=== PATIENT | male | born 1980 ===

== ENCOUNTER 2017-11-11 23:12 | Emergency (ER) | payer MEDICAID ==
[2017-11-11 23:12] VITALS: BMI 29.2
[2017-11-11 23:23] VITALS: TEMP 97.5; O2SAT 100
[2017-11-11] MEDS ORDERED: DiphenhydrAMINE 50 mg/ml Inj IVP STA (23:52)
--- NOTE | 2017-11-12 00:24 | C.PDOC ---
History Of Present Illness 37 year old male presents to the ER with a 2 day Hx of headache that is current today and current yesterday, associated with nausea. denies fever, vomiting, vision change, or family Hx of brain bleeds. Patient states it's a gradual onset headache that feels like a vicegrip around his head but does not feels like the worse headache of his life. Patient reports he is driving but will take an uber home. Time Seen by Provider: 11/11/17 23:30 Chief Complaint (Nursing): Headache History Per: Patient History/Exam Limitations: no limitations Onset/Duration Of Symptoms: Days, Gradual Current Symptoms Are (Timing): Still Present Quality: Other (Vicegrip) Preceeding Symptoms: None Associated Symptoms: Nausea. denies: Photophobia, Blurred Vision, Vomiting, Extremity Weakness Recent travel outside of the [place]: No Past Medical History Reviewed: Historical Data, Nursing Documentation, Vital Signs Vital Signs: Last Vital Signs Temp 97.5 F L 11/11/17 23:18 Pulse 82 11/12/17 01:30 Resp 16 11/12/17 01:30 BP 127/84 11/12/17 01:30 Pulse Ox 100 11/12/17 01:30 - Medical History PMH: Colonic Polyps Surgical History: Endoscopy (colonoscopy) Family History: States: Unknown Family Hx - Social History Hx Tobacco Use: No Hx Alcohol Use: Yes Hx Substance Use: No - Immunization History Hx Tetanus Toxoid Vaccination: No Hx Influenza Vaccination: No Hx Pneumococcal Vaccination: No Review Of Systems Constitutional: Negative for: Fever, Chills Eyes: Negative for: Vision Change Gastrointestinal: Positive for: Nausea. Negative for: Vomiting Neurological: Positive for: Headache Physical Exam - Physical Exam Appears: Non-toxic, No Acute Distress Skin: Normal Color, Warm, Dry Head: Atraumatic, Normacephalic Eye(s): bilateral: Normal Inspection, PERRL, EOMI Oral Mucosa: Moist Neck: Normal, Supple Chest: Symmetrical, No Tenderness Cardiovascular: Rhythm Regular Respiratory: Normal Breath Sounds, No Rales, No Rhonchi, No Wheezing Gastrointestinal/Abdominal: Soft, No Tenderness Neurological/Psych: Oriented x3, Normal Speech ED Course And Treatment O2 Sat by Pulse Oximetry: 100 (room air) Pulse Ox Interpretation: Normal Medical Decision Making Medical Decision Making: Plan: * CT head * Benadryl * Reglan * * patient states improvement. Will discharge home to follow up with pmd in2 days. Disposition Counseled Patient/Family Regarding: Studies Performed, Diagnosis, Need For Followup, Rx Given - Disposition Referrals: Anupam Pepe MD [Staff Provider] - Disposition: HOME/ ROUTINE Disposition Time: : Condition: IMPROVED Additional Instructions: follow up with neurology in 2 days call to make an appointment medication as needed for pain return to hospital if symptoms worsens or progress Prescriptions: Naproxen [Naprosyn] 500 mg PO BID PRN #16 tab PRN Reason: Pain, Moderate (4-7) Instructions: Tension Headache (ED) Forms: [facility] (Irish), General Discharge Instructions - Clinical Impression Clinical Impression: Headache - Scribe Statement The provider has reviewed the documentation as recorded by the Scribe Dain Vásquez All medical record entries made by the Scribe were at my direction and personally dictated by me. I have reviewed the chart and agree that the record accurately reflects my personal performance of the history, physical exam, medical decision making, and the department course for this patient. I have also personally directed, reviewed, and agree with the discharge instructions and disposition. Physician Patient Turnover Patient Signed Over To: Mejia Gatica DO Handoff Comments: pending CT head
[2017-11-12] MEDS ORDERED: DiphenhydrAMINE 50 mg/ml Inj ONE (00:32)
--- NOTE | 2017-11-12 00:57 | CT ---
EXAM: CT Head Without Intravenous Contrast CLINICAL HISTORY: 37 years old, male; Pain; Headache and other: Dizziness TECHNIQUE: Axial computed tomography images of the head/brain without intravenous contrast. All CT scans at this facility use one or more dose reduction techniques, viz.: automated exposure control; ma/kV adjustment per patient size (including targeted exams where dose is matched to indication; i.e. head); or iterative reconstruction technique. 367 images are submitted. Coronal and sagittal reformatted images were created and reviewed. COMPARISON: No relevant prior studies available. FINDINGS: Artifacts: Limited due to motion and misregistration artifacts. Brain: Unremarkable. No hemorrhage. No significant white matter disease. No edema. Ventricles: Unremarkable. No ventriculomegaly. Bones/joints: Unremarkable. No acute fracture. Soft tissues: Unremarkable. Sinuses: Unremarkable. No acute sinusitis. Mastoid air cells: Unremarkable. No mastoid effusion. IMPRESSION: No evidence of an acute intracranial hemorrhage, midline shift or mass effect is identified.
[2017-11-12 01:37] VITALS: BP 127/84; PULSE 82; RESP 16
== END 2017-11-12 02:00 | disposition home or self-care (01) ==
LOC: C.ER 23:12
DX: R51 Headache (principal)
CPT/HCPCS: 70450; 96374; 96375; 99284; J1200; J2765

== ENCOUNTER 2018-01-27 09:10 | Emergency (ER) | payer MEDICAID ==
[2018-01-27 09:10] VITALS: BMI 29.2
[2018-01-27 09:25] VITALS: RESP 20
[2018-01-27] MEDS ORDERED: Sodium Chloride 0.9% 1,000 ML IV ONE (10:30)
[2018-01-27 11:03] LABS: BASO # 0.1 K/uL (0.0-0.2); BASO % 1.1 % (0.0-2.0); EOS # 0.1 K/uL (0.0-0.7); EOS % 1.3 % (0.0-4.0); HEMOGLOBIN 16.2 g/dL (12.0-18.0); LYMPH % 16.7 % (20.0-40.0); MEAN CELL VOLUME 83.5 fL (80.0-94.0); MEAN CORPUSCULAR HEMOGLOBIN 29.2 pg (27.0-31.0); MEAN CORPUSCULAR HGB CONC 34.9 g/dL (33.0-37.0); MEAN PLATELET VOLUME 7.9 fL (7.2-11.7); MONO # 0.2 K/uL (0.0-0.8); MONO % 3.8 % (0.0-10.0); NEUT # 4.5 K/uL (1.8-7.0); NEUT % 77.1 % (50.0-75.0); RBC 5.55 Mil/uL (4.40-5.90); WHITE BLOOD COUNT 5.8 K/uL (4.8-10.8)
[2018-01-27 11:20] LABS: ALB/GLOB RATIO 1.3 (1.0-2.1); ALBUMIN 4.2 g/dL (3.5-5.0); ALT/SGPT 24 U/L (21-72); AST/SGOT 26 U/L (17-59); BLOOD UREA NITROGEN 17 mg/dL (9-20); CALCIUM 9.3 mg/dl (8.6-10.4); GFR AFRICAN-AMERICAN > 60; GFR NON-AFRICAN AMERICAN > 60; LIPASE 113 U/L (23-300)
[2018-01-27 11:56] LABS: SQUAMOUS EPITHIAL < 1 /hpf (0-5); URINE BILIRUBIN NEGATIVE (NEGATIVE); URINE BLOOD NEGATIVE (NEGATIVE); URINE CLARITY Clear (Clear); URINE COLOR Yellow (YELLOW); URINE GLUCOSE (UA) NORMAL (Normal); URINE LEUKOCYTE ESTERASE NEG Leu/uL (Negative); URINE NITRATE NEGATIVE (NEGATIVE); URINE PROTEIN NEGATIVE (NEGATIVE); URINE UROBILINOGEN NORMAL mg/dL (0.2-1.0)
--- NOTE | 2018-01-27 13:18 | C.PDOC ---
History Of Present Illness 37-year-old male, presents to the emergency department with complaints of dizziness that is described as room spinning, associated with nausea and two episodes of non-bloody/non-bilious vomiting. Patient has a prior Hx of vertigo from several years ago, and does not remember his medications. Patient denies numbness/weakness, speech changes, facial droop, sensory changes visual changes or any other associated symptoms. No other complaints at this time. Time Seen by Provider: 01/27/18 09:49 Chief Complaint (Nursing): GI Problem History Per: Patient History/Exam Limitations: no limitations Past Medical History Reviewed: Historical Data, Nursing Documentation, Vital Signs Vital Signs: Last Vital Signs Temp 98.3 F 01/27/18 13:47 Pulse 93 H 01/27/18 13:47 Resp 20 01/27/18 13:47 BP 125/83 01/27/18 13:47 Pulse Ox 99 01/27/18 13:47 - Medical History PMH: Colonic Polyps Surgical History: Endoscopy (colonoscopy) Family History: States: No Known Family Hx - Social History Hx Tobacco Use: No Hx Alcohol Use: Yes Hx Substance Use: No - Immunization History Hx Tetanus Toxoid Vaccination: No Hx Influenza Vaccination: No Hx Pneumococcal Vaccination: No Review Of Systems Constitutional: Negative for: Fever, Chills Cardiovascular: Negative for: Chest Pain, Palpitations Respiratory: Negative for: Shortness of Breath Gastrointestinal: Positive for: Nausea, Vomiting Skin: Negative for: Rash Neurological: Positive for: Dizziness. Negative for: Weakness, Numbness, Headache Physical Exam - Physical Exam Appears: Well, Non-toxic, No Acute Distress Skin: Normal Color, Warm, Dry, No Rash Head: Normacephalic Eye(s): bilateral: Normal Inspection, PERRL, EOMI, Other (no nystagmus) Nose: Normal Oral Mucosa: Moist Lips: Normal Appearing Neck: Normal ROM, Supple Chest: Symmetrical Cardiovascular: Rhythm Regular, No Murmur Respiratory: Normal Breath Sounds, No Accessory Muscle Use Extremity: Normal ROM, No Deformity, No Swelling Neurological/Psych: Oriented x3, Normal Speech, Normal Cognition, Normal Cranial Nerves, Normal Motor, Normal Sensation, Other (No focal deficit) ED Course And Treatment - Laboratory Results Result Diagrams: 01/27/18 10:58 01/27/18 10:58 O2 Sat by Pulse Oximetry: 100 (RA) Pulse Ox Interpretation: Normal Progress Note: Bloodwork amd UA ordered and reviewed. Patient treated with Meclizine, IVFs and Zofran. On re-evaluation, Patient is now asymptomatic, denies any neurologic complaints, is ambulating well, and is tolerating PO. Patient will be discharged home on Antivert. Patient was instructed to follow up with physician/clinic, and to return to the ER in 1-2 days if no follow up can be arranged. Disposition Counseled Patient/Family Regarding: Studies Performed, Diagnosis, Need For Followup, Rx Given - Disposition Referrals: Royer Harman MD [Staff Provider] - Ruy Leal [Medical Doctor] - Disposition: HOME/ ROUTINE Disposition Time: 13:15 Condition: STABLE Additional Instructions: FOLLOW UP WITH NEUROLOGY IF SYMPTOMS PERSIST USE MEDICATIONS DOIRECTED RETURN TO ER IF SYMPTOMS WORSEN Prescriptions: Meclizine [Meclizine*] 25 mg PO Q6 #20 tab Instructions: Vertigo (a Type of Dizziness) (DC) Forms: [employer] (Wolof) Print Language: KOREAN - POA Present On Arrival: None - Clinical Impression Clinical Impression: Peripheral vertigo - Scribe Statement The provider has reviewed the documentation as recorded by the Scribe (Cain Flower) All medical record entries made by the Scribe were at my direction and personally dictated by me. I have reviewed the chart and agree that the record accurately reflects my personal performance of the history, physical exam, medical decision making, and the department course for this patient. I have also personally directed, reviewed, and agree with the discharge instructions and disposition.
[2018-01-27 13:48] VITALS: BP 125/83; PULSE 93; TEMP 98.3
[2018-01-27 17:51] VITALS: O2SAT 100
== END 2018-01-27 13:47 | disposition home or self-care (01) ==
LOC: C.ER 09:10
DX: H81.399 Other peripheral vertigo, unspecified ear (principal)
CPT/HCPCS: 80053; 81001; 83690; 85025; 96374; 99285; J2405; J7040

== ENCOUNTER 2018-12-20 22:08 | Emergency (ER) | payer MEDICAID ==
[2018-12-20 22:08] VITALS: BMI 29.2
[2018-12-20 22:23] VITALS: RESP 18
[2018-12-20] MEDS ORDERED: Sodium Chloride 0.9% 1,000 ML IV ONE (22:26)
[2018-12-20 22:41] LABS: BASO # 0.1 K/uL (0.0-0.2); BASO % 1.3 % (0.0-2.0); EOS # 0.2 K/uL (0.0-0.7); EOS % 4.3 % (0.0-4.0); HEMOGLOBIN 16.5 g/dL (12.0-18.0); LYMPH % 35.8 % (20.0-40.0); MEAN CELL VOLUME 83.8 fL (80.0-94.0); MEAN CORPUSCULAR HEMOGLOBIN 27.5 pg (27.0-31.0); MEAN CORPUSCULAR HGB CONC 32.9 g/dL (33.0-37.0); MEAN PLATELET VOLUME 7.6 fL (7.2-11.7); MONO # 0.3 K/uL (0.0-0.8); MONO % 5.8 % (0.0-10.0); NEUT # 2.9 K/uL (1.8-7.0); NEUT % 52.8 % (50.0-75.0); NRBC % 0.3 % (0.0-2.0); RBC 6.01 Mil/uL (4.40-5.90); RED CELL DISTRIBUTION WIDTH 12.9 % (11.5-14.5); WHITE BLOOD COUNT 5.5 K/uL (4.8-10.8)
[2018-12-20] MEDS ORDERED: Sodium Chloride 0.9% 1,000 ML ONE (22:42)
[2018-12-20 22:57] LABS: ALB/GLOB RATIO 1.4 (1.0-2.1); ALBUMIN 4.6 g/dL (3.5-5.0); ALT/SGPT 22 U/L (21-72); AST/SGOT 27 U/L (17-59); BLOOD UREA NITROGEN 19 mg/dL (9-20); CALCIUM 9.1 mg/dl (8.6-10.4); GFR NON-AFRICAN AMERICAN > 60
--- NOTE | 2018-12-20 23:08 | C.PDOC ---
History Of Present Illness 38 year old male presents to the ED complaining of gradual-onset persistent headache for the last couple days. Headache is described as a band wrapping around his occiput into the temporal areas. Pain is constant, dull, pressure-like pain. Patient reports he has a history of headaches and was seen 1 year ago, at which time he had a negative CT Head. Patient then saw his PMD in the office and was prescribed Sumatriptan, which he takes occasionally. Patient reports current headache is not similar to prior migraines. It has a gradual onset and has been persistent. He denies aura. Patient notes that if he moves his head suddenly he feels dizzy. Denies any associated visual changes, photophobia, numbness, weakness, neuro deficits, neck stiffness, or fever. Time Seen by Provider: 12/20/18 22:19 Chief Complaint (Nursing): Headache History Per: Patient History/Exam Limitations: no limitations Onset/Duration Of Symptoms: Days Current Symptoms Are (Timing): Still Present Quality: Pressure, Squeezing Preceeding Symptoms: None Recent travel outside of the [place]: No Past Medical History Reviewed: Historical Data, Nursing Documentation, Vital Signs Vital Signs: Last Vital Signs Temp 97.9 F 12/20/18 22:17 Pulse 90 12/20/18 22:17 Resp 18 12/20/18 22:17 BP 137/85 12/20/18 22:17 Pulse Ox 97 12/20/18 22:17 - Medical History PMH: Colonic Polyps, Migraine Surgical History: Endoscopy (colonoscopy) Family History: States: Unknown Family Hx - Social History Hx Tobacco Use: No Hx Alcohol Use: No Hx Substance Use: No - Immunization History Hx Tetanus Toxoid Vaccination: No Hx Influenza Vaccination: No Hx Pneumococcal Vaccination: No Review Of Systems Constitutional: Negative for: Fever, Chills Eyes: Negative for: Vision Change Cardiovascular: Negative for: Chest Pain, Palpitations Respiratory: Negative for: Shortness of Breath Gastrointestinal: Negative for: Nausea, Vomiting Musculoskeletal: Negative for: Neck Pain Neurological: Positive for: Headache. Negative for: Weakness, Numbness, Change in Speech, Confusion, Altered Mental Status Physical Exam - Physical Exam Appears: Non-toxic, No Acute Distress Skin: Normal Color, Warm Head: Atraumatic, Normacephalic Eye(s): bilateral: Normal Inspection (no nystagmus), PERRL, EOMI Nose: Normal Oral Mucosa: Moist Neck: Normal ROM, Supple, Other (No meningeal signs) Chest: Symmetrical Cardiovascular: Rhythm Regular, No Murmur Respiratory: Normal Breath Sounds, No Accessory Muscle Use Gastrointestinal/Abdominal: Soft, No Tenderness, No Distention Back: Normal Inspection Extremity: Bilateral: Atraumatic, Normal Color And Temperature, Normal ROM Neurological/Psych: Oriented x3, Normal Speech, Normal Cognition, Normal Cranial Nerves (2-12 intact), No Cerebellar Signs, Normal Motor, Normal Sensation, Other (No focal deficits) Gait: Steady ED Course And Treatment - Laboratory Results Result Diagrams: 12/20/18 22:38 12/20/18 22:38 Lab Results: Total Bilirubin 0.6 mg/dL (0.2-1.3) 12/20/18 22:38 AST 27 U/L (17-59) 12/20/18 22:38 ALT 22 U/L (21-72) 12/20/18 22:38 Alkaline Phosphatase 59 U/L (38-126) 12/20/18 22:38 Total Protein 8.0 g/dL (6.3-8.3) 12/20/18 22:38 Albumin 4.6 g/dL (3.5-5.0) 12/20/18 22:38 Globulin 3.4 gm/dL (2.2-3.9) 12/20/18 22:38 Albumin/Globulin Ratio 1.4 (1.0-2.1) 12/20/18 22:38 Lab Interpretation: Normal O2 Sat by Pulse Oximetry: 97 (RA) Pulse Ox Interpretation: Normal Progress Note: Patient treated with IV Toradol with relief of symptoms. Reevaluation Time: 23:26 Reassessment Condition: Improved Medical Decision Making Medical Decision Making: Impression: Tension headache Plan: --Blood work --1L IV fluids --30 mg IV Toradol --Reassess Disposition Counseled Patient/Family Regarding: Studies Performed, Diagnosis, Need For Followup, Rx Given - Disposition Disposition: HOME/ ROUTINE Disposition Time: 23:26 Condition: IMPROVED Additional Instructions: Follow up with your primary care provider. Prescriptions: Meloxicam [Mobic] 15 mg PO DAILY #20 tab Instructions: Tension Headache (DC) Forms: [employer] (Korean) - Clinical Impression Clinical Impression: Tension type headache - Scribe Statement The provider has reviewed the documentation as recorded by the Akil Ibarra Provider Attestation: All medical record entries made by the Akil were at my direction and personally dictated by me. I have reviewed the chart and agree that the record accurately reflects my personal performance of the history, physical exam, medical decision making, and the department course for this patient. I have also personally directed, reviewed, and agree with the discharge instructions and disposition.
[2018-12-20 23:38] VITALS: BP 129/83; PULSE 74; TEMP 98; O2SAT 100
== END 2018-12-20 23:43 | disposition home or self-care (01) ==
LOC: C.ER 22:08
DX: G44.209 Tension-type headache, unspecified, not intractable (principal)
CPT/HCPCS: 80053; 85025; 96374; 99284; J1885

== ENCOUNTER 2019-01-15 18:40 | Emergency (ER) | payer MEDICAID ==
[2019-01-15 18:40] VITALS: BMI 29.2
[2019-01-15 18:55] VITALS: TEMP 98.4
[2019-01-15] MEDS ORDERED: Sodium Chloride 0.9% 1,000 ML IV STA (19:48)
[2019-01-15 20:02] LABS: BASO # 0.1 K/uL (0.0-0.2); EOS # 0.2 K/uL (0.0-0.7); EOS % 3.8 % (0.0-4.0); HEMOGLOBIN 16.6 g/dL (12.0-18.0); LYMPH # 1.4 K/uL (1.0-4.3); MEAN CELL VOLUME 83.9 fL (80.0-94.0); MEAN CORPUSCULAR HEMOGLOBIN 28.2 pg (27.0-31.0); MEAN CORPUSCULAR HGB CONC 33.6 g/dL (33.0-37.0); MEAN PLATELET VOLUME 7.6 fL (7.2-11.7); MONO # 0.3 K/uL (0.0-0.8); MONO % 5.9 % (0.0-10.0); NEUT # 3.5 K/uL (1.8-7.0); NEUT % 63.3 % (50.0-75.0); NRBC % 0.2 % (0.0-2.0); RBC 5.89 Mil/uL (4.40-5.90); RED CELL DISTRIBUTION WIDTH 13.2 % (11.5-14.5); WHITE BLOOD COUNT 5.5 K/uL (4.8-10.8)
[2019-01-15 20:25] LABS: ALB/GLOB RATIO 1.3 (1.0-2.1); ALBUMIN 4.6 g/dL (3.5-5.0); ALT/SGPT 27 U/L (21-72); AST/SGOT 35 U/L (17-59); BLOOD UREA NITROGEN 20 mg/dL (9-20); GFR NON-AFRICAN AMERICAN > 60; LIPASE 121 U/L (23-300)
[2019-01-15 21:14] LABS: URINE BILIRUBIN NEGATIVE (NEGATIVE); URINE BLOOD NEGATIVE (NEGATIVE); URINE CLARITY Clear (Clear); URINE COLOR Yellow (YELLOW); URINE GLUCOSE (UA) NORMAL (Normal); URINE LEUKOCYTE ESTERASE NEG Leu/uL (Negative); URINE PROTEIN NEGATIVE (NEGATIVE); URINE UROBILINOGEN NORMAL mg/dL (0.2-1.0)
--- NOTE | 2019-01-15 22:22 | C.PDOC ---
History Of Present Illness 38 year old male presents to the ED c/o intermittent headache. Patient has been seen multiple times previously in the ED for same complaints. Patient was told twice previously to follow up with Neurology which he still has not done it yet. Patient presents today stating his headache is now associated with nausea, vomit and loose stools. Patient denies visual changes, fever, chills, injury, fall, trauma, weakness, numbness. Time Seen by Provider: 01/15/19 19:24 Chief Complaint (Nursing): Headache History Per: Patient History/Exam Limitations: no limitations Onset/Duration Of Symptoms: Intermittent Episodes Current Symptoms Are (Timing): Still Present Quality: "Pain" Associated Symptoms: Nausea, Vomiting Recent travel outside of the [place]: No Additional History Per: Patient Past Medical History Reviewed: Historical Data, Nursing Documentation, Vital Signs Vital Signs: Last Vital Signs Temp 98.4 F 01/15/19 18:53 Pulse 100 H 01/15/19 18:53 Resp 18 01/15/19 18:53 BP 145/81 01/15/19 18:53 Pulse Ox 99 01/15/19 18:53 - Medical History PMH: Colonic Polyps, Migraine Surgical History: Endoscopy (colonoscopy) Family History: States: Unknown Family Hx - Social History Hx Tobacco Use: No Hx Alcohol Use: No Hx Substance Use: No - Immunization History Hx Tetanus Toxoid Vaccination: No Hx Influenza Vaccination: No Hx Pneumococcal Vaccination: No Review Of Systems Constitutional: Negative for: Fever, Chills Eyes: Negative for: Vision Change Cardiovascular: Negative for: Chest Pain, Palpitations Respiratory: Negative for: Shortness of Breath Gastrointestinal: Positive for: Nausea, Vomiting. Negative for: Abdominal Pain Musculoskeletal: Negative for: Neck Pain Skin: Negative for: Rash Neurological: Positive for: Headache. Negative for: Weakness, Numbness, Dizz iness Physical Exam - Physical Exam Appears: Non-toxic, No Acute Distress, Other (anxious appearing) Skin: Normal Color, Warm, Dry Head: Atraumatic, Normacephalic Eye(s): bilateral: Normal Inspection, PERRL, EOMI Oral Mucosa: Moist Neck: Normal ROM, No Midline Cervical Tenderness, Supple, Other (no meningeal signs) Chest: Symmetrical Cardiovascular: Rhythm Regular Respiratory: Normal Breath Sounds, No Rales, No Rhonchi, No Wheezing Gastrointestinal/Abdominal: Soft, No Tenderness, No Guarding, No Rebound Extremity: Normal ROM, No Tenderness, No Swelling Neurological/Psych: Oriented x3, Normal Speech, Normal Cognition Gait: Steady ED Course And Treatment - Laboratory Results Result Diagrams: 01/15/19 19:55 01/15/19 19:55 Lab Results: Total Bilirubin 0.7 mg/dL (0.2-1.3) 01/15/19 19:55 AST 35 U/L (17-59) 01/15/19 19:55 ALT 27 U/L (21-72) 01/15/19 19:55 Alkaline Phosphatase 75 U/L (38-126) 01/15/19 19:55 Total Protein 8.1 g/dL (6.3-8.3) 01/15/19 19:55 Albumin 4.6 g/dL (3.5-5.0) 01/15/19 19:55 Globulin 3.5 gm/dL (2.2-3.9) 01/15/19 19:55 Albumin/Globulin Ratio 1.3 (1.0-2.1) 01/15/19 19:55 Lipase 121 U/L (23-300) 01/15/19 19:55 Urine Color Yellow (YELLOW) 01/15/19 21:06 Urine Clarity Clear (Clear) 01/15/19 21:06 Urine pH 7.0 (5.0-8.0) 01/15/19 21:06 Ur Specific [place] 1.020 (1.003-1.030) 01/15/19 21:06 Urine Protein Negative mg/dL (NEGATIVE) 01/15/19 21:06 Urine Glucose (UA) Normal mg/dL (Normal) 01/15/19 21:06 Urine Ketones Negative mg/dL (NEGATIVE) 01/15/19 21:06 Urine Blood Negative (NEGATIVE) 01/15/19 21:06 Urine Nitrate Negative (NEGATIVE) 01/15/19 21:06 Urine Bilirubin Negative (NEGATIVE) 01/15/19 21:06 Urine Urobilinogen Normal mg/dL (0.2-1.0) 01/15/19 21:06 Ur Leukocyte Esterase Neg Felipe/uL (Negative) 01/15/19 21:06 Urine WBC (Auto) < 1 /hpf (0-5) 01/15/19 21:06 Urine RBC (Auto) 1 /hpf (0-3) 01/15/19 21:06 O2 Sat by Pulse Oximetry: 99 (ON RA) Pulse Ox Interpretation: Normal - CT Scan/US CT head Other Rad Studies (CT/US): Read By Radiologist, Radiology Report Reviewed CT/US Interpretation: Name:DEXTER QUEZADA Exam Date:Jan 15, 2019 9:07:06 PM EST. Modality Type:CT. Description:CT - BRAIN WITH CORONAL AND SAGITTAL MPRS. Gender:M Laterality:Not applicable. :78 Referring Physician:Imani Lancaster). EXAM: CT Head without Intravenous Contrast. CLINICAL HISTORY: HEADACHE. TECHNIQUE: Axial computed tomography images of the head/brain without intravenous contrast. 0.00 mGy-cm. COMPARISON: None provided. FINDINGS: BRAIN. No acute intraparenchymal hemorrhage. No mass lesion. No CT evidence for acute territorial infarct. No midline shift or extra-axial collections. VENTRICLES: No hydrocephalus. ORBITS: The orbits are unremarkable. SINUSES AND MASTOIDS: The paranasal sinuses and mastoid air cells are clear. BONES: No fracture. SOFT TISSUES: Unremarkable. IMPRESSION: No acute intracranial abnormality. . Electronically signed on Jan 15, 2019 9:48:18 PM EST by: Mejia Villa M.D., [place] Certified By ABR & CBCCT. Fellowship Trained MRI and CT Specialist Progress Note: Plan: - CT head. - Labs. - IV fluids. - Toradol 30 mg IVP. - Zofran 4 mg IVP. - Influenza A B. - UA. Imaging and labs results were griselda mercy and discussed with patient. Patient was advised to follow up with PMD and Neurologist. Patient was provided again with the information with neurolgy. Disposition - Disposition Referrals: Royer Harman MD [Staff Provider] - Disposition: HOME/ ROUTINE Disposition Time: 22:21 Condition: STABLE Additional Instructions: Follow up with Neurologist within 1-2 days. Return to ED if feel worse. Prescriptions: Acetaminophen/Butalbital/Caf [Fioricet] 1 tab PO TID PRN #20 tab PRN Reason: Headache Instructions: Headache, Adult Forms: [facility] (Moroccan) - Clinical Impression Clinical Impression: Headache - PA / WOOD ENGRAVER / Resident Statement / has reviewed & agrees with the documentation as recorded. - Scribe Statement The provider has reviewed the documentation as recorded by the Scribe [place] Negron All medical record entries made by the Lillieibe were at my direction and personally dictated by me. I have reviewed the chart and agree that the record accurately reflects my personal performance of the history, physical exam, medical decision making, and the department course for this patient. I have also personally directed, reviewed, and agree with the discharge instructions and disposition.
[2019-01-15 22:30] VITALS: BP 132/74; PULSE 92; RESP 20
[2019-01-15 23:02] VITALS: O2SAT 99
--- NOTE | 2019-01-16 08:11 | CT ---
Date of service: 01/15/2019 PROCEDURE: CT HEAD WITHOUT CONTRAST. HISTORY: headache, nausea, vomiting COMPARISON: Comparison is made to the previous study dated 11/12/2017 TECHNIQUE: Axial computed tomography images were obtained through the head/brain without intravenous contrast. Radiation dose: Total exam DLP = 1144.65 mGy-cm. This CT exam was performed using one or more of the following dose reduction techniques: Automated exposure control, adjustment of the mA and/or kV according to patient size, and/or use of iterative reconstruction technique. FINDINGS: HEMORRHAGE: No intracranial hemorrhage. BRAIN: No mass effect or edema. No atrophy or chronic microvascular ischemic changes. VENTRICLES: Unremarkable. No hydrocephalus. CALVARIUM: Unremarkable. PARANASAL SINUSES: Unremarkable as visualized. No significant inflammatory changes. MASTOID AIR CELLS: Unremarkable as visualized. No inflammatory changes. OTHER FINDINGS: None. IMPRESSION: No evidence of acute intracranial hemorrhage mass effect or midline shift. Preliminary report contains concordant findings was submitted by [facility] Radiology.
== END 2019-01-15 22:30 | disposition home or self-care (01) ==
LOC: C.ER 18:40
DX: R51 Headache (principal)
CPT/HCPCS: 70450; 80053; 81001; 83690; 85025; 87804; 96361; 96374; 96375; 99285; J1885; J2405; J7030